=== PATIENT | male | born 1970 | race Two or more races ===

== ENCOUNTER 2017-10-01 16:07 | Emergency (ER) | payer OTHER ==
[~2017-10-01] VITALS: Ht 165.1 cm; Wt 61.2 kg
--- NOTE | 2017-10-01 17:57 | Emergency Room Report ---
History of Present Illness General Chief Complaint: Multiple Trauma/Fall Source: Patient Present Illness HPI 46-year-old male presents to the emergency department complaining of progressive onset right upper shoulder/neck pain and tightness. 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 Patient denies hitting his head he denies loss of consciousness. Patient states initially he felt fine however later that shift he began to have some symptoms and went home early. Patient states that his symptoms have not improved and states in fact they have gotten worse he attempted to work yesterday where he had to leave early as well. Denies midline neck or back pain he reports some back pain that radiates across the low back but primarily on the right side as well. Pt reports some anterior lower rib tenderness as well where he landed on items he was carrying, denies open wounds/ lacerations or bleeding. Denies nausea or vomiting. Denies dyspnea. Denies bony tenderness. Pain exacerbated with ADL's and movement. Denies numbness tingling or loss of sensation or gross motor movements of the extremities, incontinence of bowel or bladder. Denies CP, Palpitations, LOC, AMS , dizziness, Changes in Vision, Sensation, paresthesias, or a sudden severe headache. Allergies: Coded Allergies: No Known Allergies (Unverified , 10/01/17) Patient History Past Medical History: see triage record Past Surgical History: none Pertinent Family History: none Immunizations: UTD Reviewed Nursing Documentation: PMH: Agreed; PSxH: Agreed Nursing Documentation-PMH Past Medical History: No Stated History Review of Systems All Other Systems: negative except mentioned in HPI Physical Exam Vital Signs Date Time Temp Pulse Resp B/P (MAP) Pulse Ox O2 Delivery O2 Flow Rate FiO2 10/01/17 17:28 98.2 71 16 113/77 97 Room Air 98.2 Sp02 EP Interpretation: reviewed, normal General Appearance: no apparent distress, alert, GCS 15, non-toxic Head: normocephalic, atraumatic ENT: hearing grossly normal, normal voice Neck: full range of motion Respiratory: lungs clear, normal breath sounds, no rhonchi, no respiratory distress, no wheezing, speaking full sentences, other - Mild anterior right rib cage tenderness to palpation, no bruising no specific bony tenderness no flail chest. Cardiovascular #1: regular rate, rhythm, normal capillary refill Cardiovascular #2: 2+ radial (R) Gastrointestinal: non tender, soft Musculoskeletal: back normal, gait/station normal, normal range of motion, tender - Tenderness to palpation to the right paraspinal cervical musculature, right trapezius and right lumbar paraspinal musculature. No midline bony tenderness palpation no step-offs no obvious deformities. Neurologic: alert, oriented x3, responsive, motor strength/tone normal, sensory intact, normal gait, speech normal, grossly normal Psychiatric: judgement/insight normal Skin: normal color, no rash, warm/dry, well hydrated, other - no bruises. Medical Decision Making PA Attestation Dr. Mattehw is my supervising Physician whom patient management has been discussed with. Diagnostic Impression: Primary Impression: Muscle spasm Additional Impressions: Muscle strain Contusion of rib on right side Qualified Codes: S20.211A - Contusion of right front wall of thorax, initial encounter ER Course 46-year-old male presents to the emergency department complaining of progressive onset right upper shoulder/neck pain and tightness. 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 Patient denies hitting his head he denies loss of consciousness. Patient states initially he felt fine however later that shift he began to have some symptoms and went home early. Patient states that his symptoms have not improved and states in fact they have gotten worse he attempted to work yesterday where he had to leave early as well. Denies midline neck or back pain he reports some back pain that radiates across the low back but primarily on the right side as well. Pt reports some anterior lower rib tenderness as well where he landed on items he was carrying, denies open wounds/ lacerations or bleeding. Denies nausea or vomiting. Denies dyspnea. Denies bony tenderness. Pain exacerbated with ADL's and movement. Denies numbness tingling or loss of sensation or gross motor movements of the extremities, incontinence of bowel or bladder. Denies CP, Palpitations, LOC, AMS , dizziness, Changes in Vision, Sensation, paresthesias, or a sudden severe headache. Ddx considered but are not limited to Fracture, dislocation, contusion, Sprain/ Strain/Spasm, Epidural abscess, Neoplastic mets. Vital signs: are WNL, pt. is afebrile H&PE are most consistent with musculoskeletal injury will perform imaging to r/ o fractures/dislocations. ORDERS: - X-ray Not warranted at this time no bony tenderness. physical exam does not suggest fractures. ED INTERVENTIONS: - Toradol IM DISCHARGE: At this time pt. is stable for d/c to home. Will provide printed patient care instructions, and any necessary prescriptions. Care plan and follow up instructions have been discussed with the patient prior to discharge. Last Vital Signs Date Time Temp Pulse Resp B/P (MAP) Pulse Ox O2 Delivery O2 Flow Rate FiO2 10/01/17 17:28 98.2 71 16 113/77 97 Room Air 98.2 Disposition: HOME, SELF-CARE Condition: Stable Scripts Lidocaine (Lidoderm) 1 Each Adh..patch 1 PATCH TOPIC DAILY, #30 PATCH 0 Refills Patch(es) may remain in place for up to 12 hours in any 24-hour period. Prov: Britta Whitney 10/01/17 Methocarbamol* (ROBAXIN*) 500 Mg Tablet 1000 MG PO TID, #42 TAB 0 Refills Prov: Britta Whitney 10/01/17 Departure Forms: Return to Work Return to Work Date: October 05, 2017 Work Restrictions: No Heavy Lifting Other Restrictions: light duty, no heavy lifting, limited use of right arm x 1 week. Return to Full Activity: October 12, 2017 Patient Instructions: Contusion, Muscle Strain, [id number] Additional Instructions: Take medications as directed. Follow up with a Primary Care Provider in 3-5 days, even if your symptoms have resolved. --Please review list of primary care clinics, if you do not already have a primary care provider Return sooner to ED if new symptoms occur, or current symptoms become worse. Do not drink alcohol, drive, or operate heavy machinery while taking Muscle Relaxers as this may cause drowsiness. - Please note that this Emergency Department Report was dictated using [employer] assistant technology software, occasionally this can lead to erroneous entry secondary to interpretation by the dictation equipment. Britta Whitney Oct 01, 2017 17:57
[2017-10-01] MEDS ORDERED: Ketorolac 60mg Inj IM ONE (18:00)
[2017-10-01] MEDS ORDERED: ROBAXIN500 MG PO (18:01)
[2017-10-01] MEDS ORDERED: LIDODERM700 M1 TOPIC (18:02)
[2017-10-01 18:36] VITALS: BP 131/75
[2017-10-01 18:38] VITALS: BP 131/75
== END 2017-10-01 18:40 | disposition home or self-care (01) ==
LOC: EMR 18:21
DX: S46.811A Strain of other muscles, fascia and tendons at shoulder and upper arm level, right arm, initial encounter (principal); S20.211A Contusion of right front wall of thorax, initial encounter; W01.0XXA Fall on same level from slipping, tripping and stumbling without subsequent striking against object, initial encounter; Y92.89 Other specified places as the place of occurrence of the external cause; Y92.511 Restaurant or cafe as the place of occurrence of the external cause; Y99.0 Civilian activity done for income or pay
CPT/HCPCS: 96372; 99284

== ENCOUNTER 2017-10-04 14:25 | Emergency (ER) | payer OTHER ==
[~2017-10-04] VITALS: Ht 165.1 cm; Wt 61.2 kg
[~2017-10-04 14:25] MED LIST: LIDODERM700 M1 TOPIC; ROBAXIN500 MG PO
[2017-10-04 14:50] VITALS: BP 118/87
[2017-10-04] MEDS ORDERED: TYLENOL EXTRA500 MG ORAL (15:18)
--- NOTE | 2017-10-04 15:19 | Emergency Room Report ---
History of Present Illness General Chief Complaint: Pain Source: Patient Present Illness HPI 46-year-old male patient presents to ER complaining of shoulder pain and headache since Wednesday. Patient was seen in the ER for same symptoms. Patient reports that right arm pain intermittently worsens, no worsening of pain acutely in ER. Patient reports that this is Workmen's Compensation case and has not been directed to follow-up with any provider. Patient reports she has not been taking any medication because the pharmacy was unable to fill his prescriptions due to need for further authorization due to this being a workman' s compensation case. Patient denies fever, chest pain, shortness of breath. Patient denies vision loss, vision changes, nausea, vomiting, dizziness. Denies new injury since time of initial injury. Allergies: Coded Allergies: No Known Allergies (Unverified , 10/01/17) Patient History Past Medical History: see triage record Reviewed Nursing Documentation: PMH: Agreed; PSxH: Agreed Nursing Documentation-PMH Past Medical History: No Stated History Review of Systems All Other Systems: negative except mentioned in HPI Physical Exam Vital Signs Date Time Temp Pulse Resp B/P (MAP) Pulse Ox O2 Delivery O2 Flow Rate FiO2 10/04/17 14:40 98.1 76 18 114/79 97 Room Air 98.1 Sp02 EP Interpretation: reviewed, normal General Appearance: well appearing, no apparent distress, alert, GCS 15, non- toxic Head: normocephalic, atraumatic Eyes: bilateral eye normal inspection, bilateral eye PERRL ENT: hearing grossly normal, normal pharynx, no angioedema, normal voice, uvula midline, moist mucus membranes Neck: full range of motion Respiratory: lungs clear, normal breath sounds, no rhonchi, no respiratory distress, no accessory muscle use, no wheezing, speaking full sentences Cardiovascular #2: 2+ radial (R), 2+ radial (L) Genitourinary: no CVA tenderness Musculoskeletal: back normal, digits/nails normal, gait/station normal, normal range of motion, non-tender Neurologic: alert, oriented x3, responsive, 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 Fowler is my supervising Physician whom patient management has been discussed with. Diagnostic Impression: Primary Impression: Headache Additional Impression: Muscle spasm ER Course Pt. presents to the ED c/o right shoulder pain and ANGEL. Ddx considered but are not limited to sprain, strain, contusion. Vital signs: are WNL, pt. is afebrile Ordered X-ray and pain medication. ER COURSE PE benign, does not need imaging at this time. Patient reports was unable to fill pain medication, pharmacy awaiting confirmation from workman's comp., requesting pain medication. Patient reports has not taken any pain medication. Reports has not contacted [employer] comp. merchandising representative. Informed patient cannot provide work note to excuse from work. Instructed patient to contact work and find out who to followup with regarding workman's comp. case and what physician he needs to followup with. Followup with workman's compensation physician for medical clearance to return to activities. Discuss referral to ortho/pain management/PT as needed. Discuss further imaging with MRI/CT as needed. DISCHARGE: -Rx provided for Tylenol for pain symptoms. At this time pt. is stable for d/c to home. Patient is resting comfortably, in no acute distress, nontoxic appearing, talking without difficulty. Will provide printed patient care instructions, and any necessary prescriptions. Patient instructed to follow with primary care provider in 3 - 5 days and to request further orthopedic follow-up. Care plan and follow up instructions have been discussed with the patient prior to discharge. Take medications as directed. Patient questions asked and answered. Patient reports understanding and agreement to treatment plan. ER precautions given, patient instructed to return to ER immediately for any new or worsening of symptoms. - Please note that this Emergency Department Report was dictated using [employer] inspector technology software, occasionally this can lead to erroneous entry secondary to interpretation by the dictation equipment. Last Vital Signs Date Time Temp Pulse Resp B/P (MAP) Pulse Ox O2 Delivery O2 Flow Rate FiO2 10/04/17 14:40 98.1 76 18 114/79 97 Room Air 98.1 Disposition: HOME, SELF-CARE Condition: Stable Scripts Acetaminophen* (TYLENOL EXTRA STRENGTH*) 500 Mg Tablet 500 MG ORAL Q8H PRN for Prn Headache/Temp > 101, #30 TAB 0 Refills Prov: Adam Leggett.Herve 10/04/17 Referrals: NOT CHOSEN IPA/MD,REFERRING (PCP) Additional Instructions: Patient instructed to follow up with primary care provider and discuss further referral to orthopedics. contact human resources or Workmen's Compensation merchandising representative to find out who the provider's he needs to see for her Workmen's Compensation case. Patient instructed on RICE method: rest, ice, compression, elevation. Patient instructed to WBAT. Take medications as directed. Patient questions asked and answered. ER precautions given, patient instructed to return to ER immediately for any new or worsening of symptoms. Adam Leggett Oct 04, 2017 15:19
[2017-10-04] MEDS ORDERED: Methocarbamol 500mg tab ORAL ONE (15:30)
[2017-10-04] MEDS ORDERED: Norco 5mg/325mg tab ORAL ONE (15:30)
[2017-10-04 15:40] VITALS: BP 134/91
== END 2017-10-04 15:40 | disposition home or self-care (01) ==
LOC: EMR 15:14
DX: R51 Headache (principal); M62.838 Other muscle spasm; M25.511 Pain in right shoulder
CPT/HCPCS: 99283